=== PATIENT | female | born 1960 | race Caucasian/White ===

== ENCOUNTER → 2017-04-12 | Outpatient (CLI) | payer OTHER ==
[~2017-04-12] MED LIST: BYSTOLIC10 MG PO; IMITREX100 MG PO; NITROSTAT0.4 MG SL; NORVASC5 MG PO; PRAVACHOL40 MG PO; PROTONIX40 MG PO
== END | disposition disaster alternative care site (69) ==
LOC: GRAD 04-11 16:00
DX: R51 Headache (principal)